=== PATIENT | male | born 1960 | race Caucasian/White ===

== ENCOUNTER 2019-02-20 09:03 | Day surgery (SDC) | payer BC ==
[2019-02-20] VITALS (10 sets, daily range): BP systolic 116–144; BP diastolic 67–86
[~2019-02-20] VITALS: Ht 177.8 cm; Wt 86.2 kg
[~2019-02-20 09:03] MED LIST: FISH OIL CAP1000 MG ORAL; NIACIN1000 MG ORAL; PROZAC20 MG ORAL; QUETIAPINE FUMA25 MG ORAL; REPATHA SU140 MG/1 M SQ; TRIUMEQ 600-501 EACH PO
--- NOTE | 2019-02-20 10:36 | Pre-Procedure Note/Attestation ---
Pre-Procedure Note/Attestation Complete Prior to Procedure Planned Procedure: not applicable Procedure Narrative: 1. ventral hernia repair with mesh 2. umbilical hernia repair with mesh Indications for Procedure Pre-Operative Diagnosis: umbilical hernia incarcerated ventral hernia Attestation I attest that I discussed the nature of the procedure; its benefits; risks and complications; and alternatives (and the risks and benefits of such alternatives ), prior to the procedure, with the patient (or the patient's legal car sales representative). I attest that, if there was a reasonable possibility of needing a blood transfusion, the patient (or the patient's legal car sales representative) was given the [place] [employer] standardized written summary, pursuant to the Ankit Gladis Blood Safety Act ([place] Health and Safety Code # 1645, as amended). I attest that I re-evaluated the patient just prior to the surgery and that there has been no change in the patient's H&P, except as documented below: Carlos Silva Feb 20, 2019 10:36
--- NOTE | 2019-02-20 10:42 | Anethesia Preoperative Eval ---
Anesthesia Pre-op PMH/ROS General Date of Evaluation: Feb 20, 2019 Anesthesiologist: Jeancarlos ASA Score: ASA 3 Mallampati Score Class I : Soft palate, uvula, fauces, pillars visible Class II: Soft palate, uvula, fauces visible Class III: Soft palate, base of uvula visible Class IV: Only hard plate visible Mallampati Classification: Class II Surgeon: Shira Diagnosis: Ventral hernia Surgical Procedure: laparoscopic ventral hernia repair Anesthesia History: none Family History: no anesthesia problems Allergies: Coded Allergies: No Known Allergies (Unverified , 02/20/19) Medications: see eMAR Patient NPO?: Yes NPO Date: Feb 19, 2019 Past Medical History Cardiovascular: Reports: other - HLD; Denies: HTN, CAD, CT, valve dz, arrhythmia Pulmonary: 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 Exam Physician Exam Last Vital Signs Date Time Temp Pulse Resp B/P (MAP) Pulse Ox O2 Delivery O2 Flow Rate FiO2 02/20/19 09:38 97.5 72 20 116/74 97 Room Air Constitutional: NAD Cardiovascular: RRR Respiratory: CTA Airway Exam Mallampati Score: Class II MO: full ROM: full Anesthesia Pre-op A/P Labs see chart Studies Pre-op Studies: EKG - sr Risk Assessment & Plan Assessment: ASA III Plan: GA Status Change Before Surgery: No Pre-Antibiotics Drug: Haydee Blount MD Feb 20, 2019 10:42
[2019-02-20] MEDS ORDERED: ceFAZolin sod 2 GM in D5W 110 ML IV ONE (10:45)
[2019-02-20] MEDS ORDERED: Rocuronium Bromide 50mg/5ml Inj IV ONE (10:54)
[2019-02-20] MEDS ORDERED: Propofol 200mg/20ml IV ONE (10:58)
[2019-02-20] MEDS ORDERED: fentaNYL 100 mcg/2 mL IV ONE (10:58)
[2019-02-20] MEDS ORDERED: Lidocaine 1% MPF 10mg/ml 5ml ONE (10:58)
[2019-02-20] MEDS ORDERED: Midazolam 2mg/2ml Inj ONE (10:58)
[2019-02-20] MEDS ORDERED: Neostigmine 1mg/ml 10ml Inj ONE (11:00)
[2019-02-20] MEDS ORDERED: Sterile Water Irrig 1000ml IRRIG ONE (11:00)
[2019-02-20] MEDS ORDERED: NS Irrig 1000ml ONE (11:00)
[2019-02-20] MEDS ORDERED: Glycopyrrolate 0.2mg/ml 1ml Vial ONE (11:00)
[2019-02-20] MEDS ORDERED: LR 1000ml ONE (11:00)
[2019-02-20] MEDS ORDERED: LR 1000ml 1,000 ML IVLG SCH (11:24)
[2019-02-20] MEDS ORDERED: DiphenhydrAMINE 50mg/ml Inj IVP PRN (11:30)
[2019-02-20] MEDS ORDERED: Hydromorphone 0.5mg/0.5ml inj IVP PRN (11:30)
[2019-02-20] MEDS ORDERED: Ketorolac 30mg Inj IV PRN (11:30)
[2019-02-20] MEDS ORDERED: Midazolam 2mg/2ml Inj IVP PRN (11:30)
[2019-02-20] MEDS ORDERED: Metoclopramide 10mg/2ml Inj IVP PRN (11:30)
[2019-02-20] MEDS ORDERED: LORazepam Inj 2mg/ml 1ml IV PRN (11:30)
[2019-02-20] MEDS ORDERED: fentaNYL 100 mcg/2 mL IV PRN (11:30)
[2019-02-20] MEDS ORDERED: Bacitracin 50000 Units Vial ONE (11:46)
--- NOTE | 2019-02-20 12:25 | Immediate Post-Op Evaluation ---
Immediate Post-Op Evalulation Immediate Post-Op Evalulation Procedure: Open ventral hernia/umbilical hernia repair Date of Evaluation: Feb 20, 2019 Time of Evaluation: 12:28 IV Fluids: 800 Blood Products: 0 Estimated Blood Loss: min Urinary Output: 0 Blood Pressure Systolic: 129 Blood Pressure Diastolic: 67 Pulse Rate: 66 Respiratory Rate: 16 O2 Sat by Pulse Oximetry: 99 Temperature (Fahrenheit): 97.2 Pain Score (1-10): 0 Nausea: No Vomiting: No Complications 0 Patient Status: awake, reacts, patent, none Hydration Status: adequate Drug: Ancef 2g Given Within 1 Hr of Incision: Yes Haydee Page MD Feb 20, 2019 12:25
--- NOTE | 2019-02-20 12:26 | 48 Hour Post Anesthesia Eval ---
Post Anesthesia Evaluation Procedure: Open ventral hernia/umbilical hernia repair Date of Evaluation: Feb 20, 2019 Airway: patent Nausea: No Vomiting: No Hydration Status: adequate Cardiopulmonary Status: at baseline Mental Status/LOC: patient returned to baseline Post-Anesthesia Complications: 0 Follow-up care needed: ready to discharge Haydee Page MD Feb 20, 2019 12:26
[2019-02-20] MEDS ORDERED: Tylenol #3 tab (300mg/30mg) ORAL PRN (13:45)
[2019-02-20] MEDS ORDERED: D5 1/2NS 1,000 ML IV SCH (13:45)
[2019-02-20] MEDS ORDERED: HYDROcodone/Acetamin 5/325 tab ORAL PRN (13:45)
[2019-02-20] MEDS ORDERED: HYDROmorphone 1mg/ml Carpuject SUBQ PRN (13:45)
--- NOTE | 2019-02-20 14:04 | Brief Operative Note ---
Immediate Post Operative Note Operative Note Pre-op Diagnosis: umbilical hernia incarcerated ventral hernia Procedure: 1. diagnostic laparoscopy 2. ventral hernia repair with mesh 3. umbilical hernia repair 4. implantation of mesh 5. adjacent tissue transfer with flap for complex closure Post-op Diagnosis: same as pre-op Surgeon: mike Anesthesiologist: justin Anesthesia: general, local Specimen: yes Complications: none Condition: stable Fluids: see records Estimated Blood Loss: minimal Drains: none Implant(s) used?: Yes Carlos Silva Feb 20, 2019 14:04
--- NOTE | 2019-02-20 21:15 | Operative Note - Dictated ---
DATE OF OPERATION: 02/20/2019 PREOPERATIVE DIAGNOSES: 1. Umbilical hernia. 2. Incarcerated ventral hernia. POSTOPERATIVE DIAGNOSES: 1. Umbilical hernia. 2. Preperitoneal incarcerated fat content ventral hernia. OPERATION PERFORMED: 1. Diagnostic laparoscopy. 2. Ventral hernia repair with mesh. 3. Umbilical hernia repair. 4. Implantation of mesh. 5. Adjacent tissue transfer with flap for complex multilayer closure. ATTENDING SURGEON: Carlos Silva M.D. SMALL PACKAGE AND BUNDLE SORTER CLERK: None. ANESTHESIOLOGIST: Dr. Ce Arshad. ANESTHESIA: General TRAVELING PASSENGER AGENT plus local. ESTIMATED BLOOD LOSS: Minimal. IV FLUIDS: Please see anesthesia records. COMPLICATIONS: None. DRAINS: None. COUNTS: Sponge and needle count correct x2. SPECIMENS: Ventral hernia contents sent to pathology for review. ANTIBIOTICS: A 2 g Ancef IV given 1 hour prior to cut time. IMPLANTS: ProLite polypropylene monofilament mesh, reference number [id number], lot number #[id number] [employer], expiration date 04/07/2021, size 15 cm x 15 cm cut size. INDICATIONS FOR PROCEDURE: This is a 58-year-old male seen by his primary care physician identified to have abnormal abdominal bulge, complaining of discomfort identified to have potential ventral hernia and sent to Dr. Silva for evaluation. The patient was seen in the office prior and identified to have a small umbilical hernia as well as an incarcerated ventral hernia approximately 34 cm cephalad to the umbilicus. Small bowel discomfort with palpation and growing. The patient is requesting repair. Surgery indicated and recommended. Risks, benefits, and alternatives were discussed with the patient in detail including placement of mesh and laparoscopic versus open repair. The patient has been understanding and consented to surgical intervention, which was scheduled for February 20, 2019. Preoperative workup was completed by the patient's primary care physician, Dr. Jagdish Pineda, and the patient was cleared and ready for surgery. OPERATIVE NOTE: The patient was taken to the operating room and placed on the operating table in supine position with bilateral arms out. All bony prominences were well padded. SCDs were placed. Preoperative time-out taken in identifying the patient, procedure, operative staff, and surgical staff. A 2 g Ancef IV were given one hour prior to cut time. The patient voided prior to entering the operating room, so no Fatima catheter was inserted. General anesthesia was induced and the patient was intubated. The abdomen was clipped, prepped, and draped in the standard surgical fashion. The umbilical hernia was utilized to enter the abdomen and after local anesthetic was infiltrated, an umbilical incision was made through the defect, carried down to the fascia and entry into the abdomen obtained without complication utilizing the open Eren technique. A 12 mm Eren trocar was inserted and the abdomen was insufflated to 12 to 15 mmHg. The laparoscope was inserted and the abdomen was inspected. The right upper quadrant and liver was otherwise healthy without issues with a nice sharp edges. No mass or other abnormalities noted. A portion of the gallbladder that could be visualized was otherwise stable. Portion of the colon that could be visualized was otherwise stable without complication. The left lobe of the liver as well as the stomach were otherwise normal. In the pelvis, there was no abnormality noted. In the right groin and left groin, no hernias were identified. In the midline, what was identified was a preperitoneal hernia with preperitoneal fatty contents incarcerated. There was no peritoneal component in this. Given this finding, decision was made to protect the peritoneal lining and proceeded with open repair rather than laparoscopic repair to avoid violation of the peritoneal plane. At this time, laparoscope was withdrawn and the abdomen was desufflated and the trocar removed. The umbilical incision was carried cephalad approximately 4 cm overlying the ventral hernia. There was incarcerated preperitoneal fat identified and this was excised down to the fascia, identifying a 2 cm fascial opening with incarcerated preperitoneal contents. The sac and preperitoneal contents were excised with electrocautery, ligated with 3-0 silk ties as necessary, and sent to pathology for review. Once completed, the preperitoneal space was identified and intact. A preperitoneal window was made approximately 2 cm circumferentially around the hernia defect, which was approximately 3 cm long and 2.5 cm wide. A mesh was then brought into the operative field and cut to appropriate sizing. Mesh was placed and sutured to the hernia defect underlay using 2-0 Prolene suture. The remaining defect was then reapproximated primarily using a 2-0 Prolene interrupted sutures. Satisfactory repair with mesh was identified and completed without complication. No significant tension was noted and satisfactory repair noted. Following this, attention was turned to the umbilical hernia defect. The edges were cleaned and the contents were reduced. There was no significant sacral abnormality identified. Once this was completed, the umbilical hernia defect was reapproximated using a 0 [id number] Vicryl suture. The wound was cleansed and irrigated. Given the prior size of the incarcerated contents, the defect was identified and adjacent tissue transfer was recommended for closure of the space. The subcutaneous tissue and skin flap was formed overlying the anterior rectus sheath and taken laterally and superiorly. This was done both on the right and left side. Once this was completed, the subcutaneous tissue and skin flap was mobilized medially and reapproximated using 3-0 Vicryl sutures to ensure no significant tension and coverage of the defect area. Once this was completed, the skin incision was reapproximated using 4-0 Monocryl subcuticular running suture using an interrupted suture at the base of the umbilicus tacking down reforming a new umbilical stalk. The wound was irrigated and cleansed followed by cleanse of the skin incision and a palpable application of Dermabond and Steri-Strips. The patient tolerated the procedure well, was extubated, and taken to postanesthetic care unit in stable condition. Seen postoperatively with minimal pain, comfortable, ambulating, and discharged home in stable condition with follow up. Carlos Silva M.D. DR: JHONY JOB#: [id number] CC:
== END 2019-02-20 14:50 | disposition home or self-care (01) ==
LOC: SUR 09:03
DX: K42.9 Umbilical hernia without obstruction or gangrene (principal); K43.6 Other and unspecified ventral hernia with obstruction, without gangrene; E78.5 Hyperlipidemia, unspecified; F32.9 Major depressive disorder, single episode, unspecified; G47.00 Insomnia, unspecified; B20 Human immunodeficiency virus [HIV] disease; F41.9 Anxiety disorder, unspecified; G47.33 Obstructive sleep apnea (adult) (pediatric)
CPT/HCPCS: 14000; 49320; 49561; 49568; 49585; C1781; J0690; J1170; J1885; J2250; J2704; J2710; J3010; J7120; 94003; 94150